=== PATIENT | female | born 1980 | race Caucasian/White ===

== ENCOUNTER 2019-01-06 20:13 | Emergency (ER) | payer MEDICAID ==
[~2019-01-06] VITALS: Ht 170.2 cm; Wt 62.6 kg
[2019-01-06 20:20] VITALS: BP_SYST 107
[2019-01-06 21:55] LABS: BASOPHILS # (AUTO) 0.1 K/uL (0.0-0.2); BASOPHILS % (AUTO) 1.8 % (0.0-2.0); EOSINOPHILS # (AUTO) 0.1 K/uL (0.0-0.4); EOSINOPHILS % (AUTO) 1.9 % (0.0-4.0); HEMOGLOBIN 11.9 g/dL (12.0-16.0); LYMPHOCYTES # (AUTO) 1.9 K/uL (1.0-5.5); LYMPHOCYTES % (AUTO) 33.4 % (20.5-51.5); MEAN CORPUSCULAR HEMOGLOBIN 29 pg (27-31); MEAN CORPUSCULAR HGB CONC 33 % (32-36); MEAN CORPUSCULAR VOLUME 88 fL (79.0-98.0); MONOCYTES # (AUTO) 0.3 K/uL (0.0-1.0); MONOCYTES % (AUTO) 4.9 % (1.7-9.3); NEUTROPHILS # (AUTO) 3.3 K/uL (1.8-7.7); PLATELET COUNT (AUTO) 272 K/uL (130-430); RED BLOOD CELL COUNT(AUTO) 4.08 MIL/uL (4.2-6.2); RED CELL DISTRIBUTION WIDTH 14.4 % (9.0-15.0); WHITE BLOOD COUNT (AUTO) 5.7 K/uL (4.8-10.8)
[2019-01-06 22:01] LABS: ANION GAP 6 (5-15); CHLORIDE 104 mmol/L (98-107); CREATININE 0.63 mg/dL (0.55-1.30); GLUCOSE 73 mg/dL (70-99); POTASSIUM 3.6 mmol/L (3.5-5.1); SODIUM SERUM 137 mmol/L (136-145); UREA NITROGEN, BLOOD 8 mg/dL (8-21)
[2019-01-06 22:02] LABS: GFR AFRICAN AMERICAN 136 mL/min (>90)
[2019-01-06 22:15] LABS: ALANINE AMINOTRANSFERASE 13 U/L (12-78); ASPARTATE AMINOTRANSFERASE 13 U/L (10-37); THYROID STIMULATING HORMONE 3.31 uIu/mL (0.36-3.74); TOTAL BILIRUBIN 0.3 mg/dL (0.0-1.0)
[2019-01-06 23:30] VITALS: BP_SYST 116
== END 2019-01-06 23:30 | disposition home or self-care (01) ==
LOC: SED 20:13
DX: R20.2 Paresthesia of skin (principal)
CPT/HCPCS: 36415; 70450-TC; 80053; 81002; 81025; 84443-TC; 84484; 85025; 93005; 99284

== ENCOUNTER 2020-11-03 09:56 | Emergency (ER) | payer MEDICAID ==
[~2020-11-03] VITALS: Ht 170.2 cm; Wt 63.5 kg
[2020-11-03 10:00] VITALS: BP_SYST 124
--- NOTE | 2020-11-03 10:00 | NUR ---
BROUGHT BACK TO BED #4 AND TRIAGED. REPORT GIVEN TO FRANCHESKA
--- NOTE | 2020-11-03 10:10 | NUR ---
Pt. brought self in with c/o headache, lethargic, feels feverish, and has notable swelling to both ears and right cheek. States started feeling feverish last night and had headache and woke up this morning with swelling that concerned her. Denies any allergies.
--- NOTE | 2020-11-03 10:15 | NUR ---
MARI Franklin at bedside examining patient.
[2020-11-03] MEDS ORDERED: prednisoLONE 15 MG/5 ML UDC PO ONE (10:45)
[2020-11-03] MEDS ORDERED: ACETAMINOPHEN 500 MG TABLET PO ONE (10:45)
[2020-11-03] MEDS ORDERED: IBUPROFEN 600 MG TABLET PO ONE (10:45)
[2020-11-03] MEDS ORDERED: prednisoLONE 15 MG/5 ML UDC ONE (10:52)
--- NOTE | 2020-11-03 10:55 | NUR ---
temp 99.7, motrin and tylenol given as ordered
[2020-11-03] MEDS ORDERED: DIPHENHYDRAMINE HCL 25 MG CAPSULE PO ONE (11:30)
--- NOTE | 2020-11-03 12:31 | NUR ---
Pt. Covid positive, POC discussed with pt. Dr. Dick discussed home care with pt. and answered all questions.
[2020-11-03] MEDS ORDERED: DIPH25TA62 PO (13:03)
[2020-11-03] MEDS ORDERED: HYDC2.5% TP (13:03)
[2020-11-03] MEDS ORDERED: PRED20TA PO (13:03)
[2020-11-03 13:26] VITALS: BP_SYST 110
--- NOTE | 2020-11-03 13:27 | NUR ---
Patient given written and verbal discharge instructions and verbalizes understanding. ER MD discussed with patient the results and treatment provided. Patient in stable condition. ID arm band removed. IV catheter removed intact and dressing applied, no active bleeding. Rx of Benadryl, Prednisone, hydrocortisone given. Patient educated on pain management and to follow up with PMD. Pain Scale 0/10. Opportunity for questions provided and answered. Medication side effect fact sheet provided.
== END 2020-11-03 13:27 | disposition home or self-care (01) ==
LOC: SED 09:56
DX: U07.1 COVID-19 (principal); L25.9 Unspecified contact dermatitis, unspecified cause; Z79.899 Other long term (current) drug therapy
CPT/HCPCS: 36415; 71045; 81025; 87426; 99284; Q0163

== ENCOUNTER 2020-11-09 08:54 | Emergency (ER) | payer MEDICAID ==
[~2020-11-09] VITALS: Ht 160 cm; Wt 64.9 kg
[~2020-11-09 08:54] MED LIST: DIPH25TA62 PO; HYDC2.5% TP; PRED20TA PO
[2020-11-09 09:11] VITALS: BP_SYST 134
[2020-11-09] MEDS ORDERED: ACETAMINOPHEN WITH CODEINE 12.5 ML UDC PO ONE (09:30)
[2020-11-09] MEDS ORDERED: ALBMDI INH (09:36)
[2020-11-09] MEDS ORDERED: AZIT-62 PO (09:36)
[2020-11-09] MEDS ORDERED: ROBAC PO (09:36)
[2020-11-09 10:18] VITALS: BP_SYST 134
== END 2020-11-09 10:18 | disposition home or self-care (01) ==
LOC: SED 08:54
DX: U07.1 COVID-19 (principal); J12.82 Pneumonia due to coronavirus disease 2019; Z79.899 Other long term (current) drug therapy
CPT/HCPCS: 71045; 99283

== ENCOUNTER 2020-11-12 10:06 | Emergency (ER) | payer MEDICAID, SELFPAY ==
[~2020-11-12] VITALS: Ht 162.6 cm; Wt 59.0 kg
[~2020-11-12 10:06] MED LIST changes: +ALBMDI INH; +AZIT-62 PO; +ROBAC PO
[2020-11-12 10:15] VITALS: BP_SYST 127
[2020-11-12] MEDS ORDERED: LORA-258 PO (10:40)
[2020-11-12 10:50] VITALS: BP_SYST 127
== END 2020-11-12 10:50 | disposition home or self-care (01) ==
LOC: SED 10:06
DX: U07.1 COVID-19 (principal); F41.9 Anxiety disorder, unspecified; Z79.899 Other long term (current) drug therapy
CPT/HCPCS: 99283

== ENCOUNTER 2023-02-01 14:38 | Emergency (ER) | payer MEDICAID ==
[~2023-02-01] VITALS: Ht 170.2 cm; Wt 63.5 kg
[~2023-02-01 14:38] MED LIST changes: -AZIT-62 PO; +AZIT-93 PO; +LORA-258 PO
[2023-02-01 14:55] VITALS: BP_SYST 106; PULSE 75; RESP 22; TEMP 98.3; O2SAT 98
[2023-02-01] MEDS ORDERED: ALBMDI INH (16:31)
[2023-02-01] MEDS ORDERED: PRED20TA PO (16:31)
[2023-02-01 16:57] VITALS: BP_SYST 106; PULSE 75; RESP 22; TEMP 98.3; O2SAT 98
[2023-02-01 17:28] LABS: INFLUENZA TYPE A Negative (NEGATIVE); INFLUENZA TYPE B NEGATIVE (NEGATIVE)
== END 2023-02-01 16:56 | disposition home or self-care (01) ==
LOC: SED 14:38
DX: J40 Bronchitis, not specified as acute or chronic (principal); R05.9 Cough, unspecified; R09.81 Nasal congestion; Z79.899 Other long term (current) drug therapy; Z20.822 Contact with and (suspected) exposure to COVID-19
CPT/HCPCS: 36415; 71045; 99284